=== PATIENT | female | born 1940 | race Caucasian/White ===

== ENCOUNTER 2025-03-19 08:33 | Emergency (ER) | payer MEDICARE, BC ==
[2025-03-19] MEDS: Alum Hydroxide/Mag Hydroxide 15 ML, Lidocaine 2% 15 ML PO ONE (08:51)
[2025-03-19 09:49] VITALS: BP 145/75; PULSE 69
== END 2025-03-19 10:00 | disposition home or self-care (01) ==
LOC: FB.ED 08:33
DX: F45.8 Other somatoform disorders (principal); Z88.1 Allergy status to other antibiotic agents; Z88.8 Allergy status to other drugs, medicaments and biological substances; Z91.048 Other nonmedicinal substance allergy status; Z79.82 Long term (current) use of aspirin; Z79.899 Other long term (current) drug therapy
CPT/HCPCS: 99283; A9270